=== PATIENT | male | born 1985 | race African-American/Black ===

== ENCOUNTER 2019-05-27 13:40 | Emergency (ER) | payer OTHER ==
[2019-05-27] MEDS ORDERED: Lidocaine 1% (PF) 30 ML VIAL ONE (14:04)
--- NOTE | 2019-05-27 14:06 | RAD ---
RIGHT INDEX FINGER THREE VIEWS: HISTORY: Laceration. Pain. COMPARISON: None FINDINGS: Soft tissue laceration at the palmar aspect of the second digit (proximal interphalangeal joint space ). No fracture. No cortical irregularity. No radiopaque foreign body. IMPRESSION: 1. No fracture. 2. No radiopaque foreign body. 3. Soft tissue laceration. Transcribed Date/Time: 05/27/2019 2:31 PM
[2019-05-27] MEDS ORDERED: Adacel (T-DAP) 0.5 ML SYRINGE ONE (14:08)
[2019-05-27] MEDS ORDERED: Bacitracin 1 PK ONE (14:19)
== END 2019-05-27 14:25 | disposition home or self-care (01) ==
LOC: NAV ERS 13:40
DX: S61.210A Laceration without foreign body of right index finger without damage to nail, initial encounter (principal); F17.210 Nicotine dependence, cigarettes, uncomplicated; Z23 Encounter for immunization; W26.8XXA Contact with other sharp object(s), not elsewhere classified, initial encounter
CPT/HCPCS: 12001; 80305; 90715; J2001